=== PATIENT | female | born 1935 | race Asian ===

== ENCOUNTER 2022-01-26 07:38 | Outpatient (CLI) | payer MEDICARE | END 2022-01-26 23:59 | disposition home or self-care (01) | LOC: LAB 07:38 | PROVIDERS: ATTEND Ophthalmology | DX: Z01.812 Encounter for preprocedural laboratory examination (principal); Z20.822 Contact with and (suspected) exposure to COVID-19 ==

== ENCOUNTER 2022-01-28 06:06 | Day surgery (SDC) | payer MEDICARE, OTHER ==
[2022-01-28] MEDS ORDERED: KETOROLAC 0.5% OPHT DROP 3 ML BOTTLE ONE (06:26)
[2022-01-28] MEDS ORDERED: CIPROFLOXACIN 0.3% OPHT DROP 2.5 ML BOTTLE ONE (06:26)
[2022-01-28] MEDS ORDERED: PHENYLEPHRINE 2.5% OPHT DROP 2 ML BOTTLE ONE (06:26)
[2022-01-28] MEDS ORDERED: CYCLOPENTOLATE 1% OPHT DROP 2 ML BOTTLE ONE (06:26)
[2022-01-28] MEDS ORDERED: TROPICAMIDE 1% OPHT DROP 3 ML BOTTLE ONE (06:27)
[2022-01-28] MEDS ORDERED: LIDOCAINE-MPF 2% , 2 ML VIAL ONE (06:48)
[2022-01-28] MEDS ORDERED: TRYPAN BLUE 0.5 ML DISP.SYRIN ONE (06:48)
[2022-01-28] MEDS ORDERED: ACETYLCHOLINE CHLORIDE 1% OPHT 1 EA KIT ONE (06:49)
[2022-01-28] MEDS ORDERED: BUPIVACAINE PF 0.5% 30 ML VIAL ONE (06:49)
[2022-01-28] MEDS ORDERED: TIMOLOL MALEATE 0.5% OPHT DROP 5 ML BOTTLE ONE (06:49)
[2022-01-28] MEDS ORDERED: NEO/POLYMYX B/DEXAME OPHT OINT 3.5 GM TUBE ONE (06:49)
[2022-01-28] MEDS ORDERED: MOXIFLOXACIN HCL 3 ML OPHT DROPS ONE (06:49)
[2022-01-28] MEDS ORDERED: HYALURONIDASE,OVINE 200 UNITS/ML VIAL ONE (06:50)
[2022-01-28] MEDS ORDERED: HYALURONATE SODIUM 12.8 MG/0.8 ML DISP.SYRIN ONE (06:50)
[2022-01-28] MEDS ORDERED: HYALURONATE SODIUM 8.5 MG/0.85 ML ONE (06:50)
[2022-01-28] MEDS ORDERED: BALANCED SALT IRRIG SOLN COMB2 15 ML IRRIG.SOLN ONE (06:58)
[2022-01-28] MEDS ORDERED: TETRACAINE HCL 0.5% OPHT DROP 2 ML BOTTLE ONE (06:59)
[2022-01-28] MEDS ORDERED: BALANCED SALT IRRIG SOLN COMB1 500 ML ONE ×2 (06:59→08:45)
[2022-01-28] MEDS ORDERED: BALANCED SALT IRRIG SOLN COMB1 500 ML, EPINEPHRINE-PF 1:1000 0.5 MG IO ONE ×2 (07:00)
[2022-01-28] MEDS ORDERED: FENTANYL CITRATE 100 MCG/2 ML AMPUL ONE (07:08)
[2022-01-28] MEDS ORDERED: ACETAzolamide 250 MG TABLET PO ONE (09:45)
== END 2022-01-28 12:15 | disposition home or self-care (01) ==
LOC: DS 06:06
PROVIDERS: ATTEND Ophthalmology
DX: H25.89 Other age-related cataract (principal); I25.10 Atherosclerotic heart disease of native coronary artery without angina pectoris; E78.5 Hyperlipidemia, unspecified; I12.9 Hypertensive chronic kidney disease with stage 1 through stage 4 chronic kidney disease, or unspecified chronic kidney disease; N18.9 Chronic kidney disease, unspecified; Z79.899 Other long term (current) drug therapy; Z98.890 Other specified postprocedural states
CPT/HCPCS: 66984; 71045; J7321 ×2; J3490 ×2; J3471; J3010; J7120; V2632; A4663; J0171; J8499; Q9968